=== PATIENT | male | born 1990 | race Two or more races ===

== ENCOUNTER 2021-10-13 12:46 | Emergency (ER) | payer SELFPAY ==
[~2021-10-13] VITALS: Ht 182.9 cm; Wt 67.6 kg
[2021-10-13 13:59] LABS: Urine Bacteria FEW /hpf (None Seen); Urine Blood 3+ /uL (Negative); Urine Mucus FEW (None Seen); Urine Specific Gravity 1.016 (1.001-1.035); Urine WBC 1985 /hpf (0 - 3); Urine WBC Clumps PRESENT /hpf (None Seen)
[2021-10-13 19:55] VITALS: BP 127/65
[2021-10-13] MEDS ORDERED: cefTRIAXone SOD 1,000 MG VL IM ONE (20:00)
[2021-10-13] MEDS ORDERED: AZITHROMYCIN 250 MG TAB PO ONE (20:00)
== END 2021-10-13 20:10 | disposition home or self-care (01) ==
LOC: ER 12:46
DX: N39.0 Urinary tract infection, site not specified (principal); Z20.2 Contact with and (suspected) exposure to infections with a predominantly sexual mode of transmission
CPT/HCPCS: 81001; 87491; 87591; 96372; 99283; J0696